=== PATIENT | female | born 1975 | race Caucasian/White ===

== ENCOUNTER 2022-08-13 18:25 | Emergency (ER) | payer MEDICARE ==
[~2022-08-13] VITALS: Ht 152.4 cm; Wt 66.2 kg
[2022-08-13] MEDS ORDERED: CITALOPRAM20 MG PO (18:39)
[2022-08-13] MEDS ORDERED: BENZTROPINE ME0.5 MG PO (18:39)
[2022-08-13] MEDS ORDERED: FAMOTIDINE20 M1 PO (18:40)
[2022-08-13] MEDS ORDERED: PROPRANOLOL HCL20 MG PO (18:40)
[2022-08-13] MEDS ORDERED: DIVALPROEX SOD250 MG PO (18:41)
[2022-08-13] MEDS ORDERED: OLANZAPINE20 M2 PO (18:41)
[2022-08-13] MEDS ORDERED: HYDROXYZINE HCL25 MG PO (18:41)
[2022-08-13] MEDS ORDERED: FIBERLAX625 MG PO (18:42)
[2022-08-13] MEDS ORDERED: PANTOPRAZOLE SO40 MG PO (18:42)
[2022-08-13] MEDS ORDERED: CLARITIN10 MG PO (18:43)
[2022-08-13] MEDS ORDERED: MULTIPLE VITAM1 EAC1 PO (18:43)
[2022-08-13] MEDS ORDERED: VITAMIN C500 M8 PO (18:44)
[2022-08-13] MEDS ORDERED: ZINC50 M4 PO (18:44)
[2022-08-13 18:45] LABS: BASO # 0.1 10*3/uL (0.0-0.1); BASO % 0.8 % (0.0-1.0); EOS # 0.2 10*3/uL (0.0-0.4); EOS % 2.9 % (1.0-4.0); HEMATOCRIT 37.1 % (37.0-47.0); LYMPH # 2.1 10*3/uL (1.3-4.4); LYMPH % 34.5 % (27.0-41.0); MEAN CELL VOLUME 97.4 fl (81.0-99.0); MEAN CORPUSCULAR HGB 32.5 pg (27.0-31.0); MEAN CORPUSCULAR HGB CONC 33.4 g/dl (33.0-37.0); MEAN PLATELET VOLUME 11.2 fl (9.6-12.3); MONO # 0.7 10*3/uL (0.1-1.0); NEUT # 3.1 10*3/uL (2.3-7.9); NEUT % 49.2 % (47.0-73.0); PLATELET COUNT AUTOMATED 160 10*3/uL (130-400); RED BLOOD COUNT 3.81 10*6/uL (4.10-5.10); RED CELL DISTRI WIDTH 14.2 % (0-14.5); WHITE BLOOD COUNT 6.2 10*3/uL (4.8-10.8)
[2022-08-13 19:02] LABS: ALKALINE PHOSPHATASE 49 U/L (46-116); BUN 8 mg/dl (9-23); CHLORIDE 104 mmol/L (98-107); CPK 48 U/L (34-171); POTASSIUM 4.1 mmol/L (3.4-5.1); SGPT/ALT 49 U/L (10-49); TOTAL PROTEIN 6.8 gm/dL (6.0-8.0)
[2022-08-13 19:05] LABS: ETHYL ALCOHOL < 3.0 mg/dl (<3)
[2022-08-13 19:24] LABS: BILIRUBIN Negative (Negative); BLOOD Negative (Negative); CLARITY Clear (Clear); COLOR Yellow (Yellow); GLUCOSE Negative (Negative); KETONE Negative (Negative); LEUKO ESTERASE Negative (Negative); NITRITE Negative (Negative); SPECIFIC GRAVITY <= 1.005 (1.001-1.030); UROBILINOGEN 0.2 E.U./dl (0.0-1.0)
[2022-08-13 19:32] LABS: URINE AMPHETAMINES Negative (1000ng/ml); URINE BARBITURATES Negative (200ng/ml); URINE BENZODIAZEPINES Negative (200ng/ml); URINE CANNABINOIDS (THC) Negative (50ng/ml); URINE COCAINE Negative (300ng/ml); URINE METHADONE Negative (300ng/ml); URINE OPIATES Negative (300ng/ml); URINE PHENCYCLIDINE Negative (25ng/ml)
[2022-08-13 19:41] LABS: RBC 0-2 rbc/hpf (0-2); WBC 0-2 wbc/hpf (0-5)
== END 2022-08-14 08:40 | disposition home or self-care (01) ==
LOC: ED 18:25
PROVIDERS: Emergency Medicine
DX: F43.20 Adjustment disorder, unspecified (principal); Z20.822 Contact with and (suspected) exposure to COVID-19

== ENCOUNTER 2022-09-24 08:09 | Emergency (ER) | payer MEDICARE ==
[~2022-09-24 08:09] MED LIST: BENZTROPINE ME0.5 MG PO; CITALOPRAM20 MG PO; CLARITIN10 MG PO; DIVALPROEX SOD250 MG PO; FAMOTIDINE20 M1 PO; FIBERLAX625 MG PO; HYDROXYZINE HCL25 MG PO; MULTIPLE VITAM1 EAC1 PO; OLANZAPINE20 M2 PO; PANTOPRAZOLE SO40 MG PO; PROPRANOLOL HCL20 MG PO; VITAMIN C500 M8 PO; ZINC50 M4 PO
[2022-09-24] MEDS ORDERED: Motrin,Rufen800 MG PO (09:45)
== END 2022-09-24 09:50 | disposition home or self-care (01) ==
LOC: ED 08:09
DX: S50.02XA Contusion of left elbow, initial encounter (principal); F41.9 Anxiety disorder, unspecified; K21.9 Gastro-esophageal reflux disease without esophagitis; F31.9 Bipolar disorder, unspecified; W19.XXXA Unspecified fall, initial encounter; Y93.89 Activity, other specified; Y92.89 Other specified places as the place of occurrence of the external cause; Y99.8 Other external cause status

== ENCOUNTER 2022-09-27 14:13 | Emergency (ER) | payer MEDICARE ==
[~2022-09-27] VITALS: Wt 64.3 kg
[~2022-09-27 14:13] MED LIST changes: +Motrin,Rufen800 MG PO
[2022-09-27 14:48] LABS: BASO # 0.1 10*3/uL (0.0-0.1); BASO % 1.1 % (0.0-1.0); EOS # 0.1 10*3/uL (0.0-0.4); EOS % 2.9 % (1.0-4.0); HEMATOCRIT 39.5 % (37.0-47.0); LYMPH # 1.8 10*3/uL (1.3-4.4); LYMPH % 39.6 % (27.0-41.0); MEAN CELL VOLUME 100.5 fl (81.0-99.0); MEAN CORPUSCULAR HGB 32.3 pg (27.0-31.0); MEAN CORPUSCULAR HGB CONC 32.2 g/dl (33.0-37.0); MEAN PLATELET VOLUME 11.3 fl (9.6-12.3); MONO # 0.5 10*3/uL (0.1-1.0); NEUT % 43.6 % (47.0-73.0); PLATELET COUNT AUTOMATED 130 10*3/uL (130-400); RED BLOOD COUNT 3.93 10*6/uL (4.10-5.10); RED CELL DISTRI WIDTH 14.1 % (0-14.5); WHITE BLOOD COUNT 4.5 10*3/uL (4.8-10.8)
[2022-09-27 15:13] LABS: ALKALINE PHOSPHATASE 48 U/L (46-116); BUN 6 mg/dl (9-23); CHLORIDE 110 mmol/L (98-107); LIPASE 48 U/L (12-53); POTASSIUM 3.8 mmol/L (3.4-5.1); SGPT/ALT 36 U/L (10-49); TOTAL PROTEIN 6.6 gm/dL (6.0-8.0)
[2022-09-27 15:18] LABS: BILIRUBIN Negative (Negative); BLOOD Negative (Negative); CLARITY Clear (Clear); COLOR Yellow (Yellow); GLUCOSE Negative (Negative); KETONE Negative (Negative); LEUKO ESTERASE Trace (Negative); NITRITE Negative (Negative); PH 6.5 (4.5-8.0)
[2022-09-27 15:38] LABS: BACTERIA TRACE; EPITHELIAL CELLS 0-2
[2022-09-27] MEDS ORDERED: PEPCID20 MG PO ×2 (15:56→16:21)
== END 2022-09-27 15:58 | disposition home or self-care (01) ==
LOC: ED 14:13
PROVIDERS: Emergency Medicine
DX: R07.89 Other chest pain (principal); R10.13 Epigastric pain; F41.9 Anxiety disorder, unspecified; K21.9 Gastro-esophageal reflux disease without esophagitis; F31.9 Bipolar disorder, unspecified

== ENCOUNTER 2023-02-03 20:10 | Emergency (ER) | payer MEDICARE ==
[~2023-02-03] VITALS: Wt 73.0 kg
[~2023-02-03 20:10] MED LIST changes: +PEPCID20 MG PO
[2023-02-03 20:21] LABS: BILIRUBIN Negative (Negative); BLOOD Negative (Negative); CLARITY Clear (Clear); COLOR Yellow (Yellow); GLUCOSE Negative (Negative); KETONE Negative (Negative); LEUKO ESTERASE Trace (Negative); NITRITE Negative (Negative)
[2023-02-03 20:31] LABS: BASO % 0.5 % (0.0-1.0); EOS # 0.1 10*3/uL (0.0-0.4); EOS % 1.2 % (1.0-4.0); HEMATOCRIT 38.3 % (37.0-47.0); LYMPH # 2.2 10*3/uL (1.3-4.4); LYMPH % 26.4 % (27.0-41.0); MEAN CELL VOLUME 101.6 fl (81.0-99.0); MEAN CORPUSCULAR HGB 33.4 pg (27.0-31.0); MEAN CORPUSCULAR HGB CONC 32.9 g/dl (33.0-37.0); MEAN PLATELET VOLUME 10.7 fl (9.6-12.3); MONO # 0.8 10*3/uL (0.1-1.0); MONO % 10.3 % (3.0-9.0); NEUT # 4.9 10*3/uL (2.3-7.9); NEUT % 60.5 % (47.0-73.0); PLATELET COUNT AUTOMATED 146 10*3/uL (130-400); RED BLOOD COUNT 3.77 10*6/uL (4.10-5.10); RED CELL DISTRI WIDTH 13.6 % (0-14.5); WHITE BLOOD COUNT 8.1 10*3/uL (4.8-10.8)
[2023-02-03 20:45] LABS: BACTERIA 1+; RBC 0-2 rbc/hpf (0-2); WBC 16-20 wbc/hpf (0-5)
[2023-02-03 20:56] LABS: ALKALINE PHOSPHATASE 55 U/L (46-116); BUN 9 mg/dl (9-23); CHLORIDE 107 mmol/L (98-107); LIPASE 41 U/L (12-53); POTASSIUM 3.5 mmol/L (3.4-5.1); SGPT/ALT 29 U/L (10-49); TOTAL PROTEIN 7.1 gm/dL (6.0-8.0)
== END 2023-02-03 22:58 | disposition home or self-care (01) ==
LOC: ED 20:10
PROVIDERS: Internal Medicine
DX: R10.11 Right upper quadrant pain (principal); R79.89 Other specified abnormal findings of blood chemistry; D75.89 Other specified diseases of blood and blood-forming organs; E44.1 Mild protein-calorie malnutrition; N20.0 Calculus of kidney; F41.9 Anxiety disorder, unspecified; K21.9 Gastro-esophageal reflux disease without esophagitis; F31.9 Bipolar disorder, unspecified; Z68.1 Body mass index [BMI] 19.9 or less, adult

== ENCOUNTER → 2023-02-20 | Outpatient (CLI) | payer MEDICARE ==
[2023-02-20 10:24] LABS: BASO % 0.5 % (0.0-1.0); EOS # 0.2 10*3/uL (0.0-0.4); EOS % 1.8 % (1.0-4.0); LYMPH # 1.3 10*3/uL (1.3-4.4); LYMPH % 15.6 % (27.0-41.0); MEAN CELL VOLUME 103.5 fl (81.0-99.0); MEAN CORPUSCULAR HGB 33.6 pg (27.0-31.0); MEAN CORPUSCULAR HGB CONC 32.4 g/dl (33.0-37.0); MEAN PLATELET VOLUME 11.2 fl (9.6-12.3); MONO # 0.9 10*3/uL (0.1-1.0); MONO % 10.4 % (3.0-9.0); NEUT % 71.1 % (47.0-73.0); PLATELET COUNT AUTOMATED 161 10*3/uL (130-400); RED BLOOD COUNT 3.96 10*6/uL (4.10-5.10); RED CELL DISTRI WIDTH 13.6 % (0-14.5); WHITE BLOOD COUNT 8.5 10*3/uL (4.8-10.8)
[2023-02-20 11:15] LABS: ALKALINE PHOSPHATASE 59 U/L (46-116); BUN 9 mg/dl (9-23); CHLORIDE 109 mmol/L (98-107); CHOLESTEROL 126 mg/dL (<200); LDL CHOLESTEROL 69 mg/dL (9-159); SGPT/ALT 33 U/L (5-49); TOTAL PROTEIN 7.5 gm/dL (6.0-8.0); TRIGLYCERIDES 103 mg/dl (<150); VALPROIC ACID (DEPAKENE) 96.4 ug/ml (50-100)
[2023-02-20 11:38] LABS: VITAMIN D, 25-HYDROXY 38.5 ng/mL (30-100)
== END | disposition home or self-care (01) ==
LOC: LAB 09:44
PROVIDERS: ATTEND Physician Assistant
DX: Z51.81 Encounter for therapeutic drug level monitoring (principal); Z79.899 Other long term (current) drug therapy